=== PATIENT | female | born 1970 | race Caucasian/White ===

== ENCOUNTER 2021-05-25 14:56 | Emergency (ER) | payer OTHER, MEDICAID ==
[~2021-05-25] VITALS: Ht 152.4 cm; Wt 42.2 kg
--- NOTE | 2021-05-25 15:10 | NUR ---
Placed in room 2 . Placed on playground monitor, blood pressure machine and pulse oximeter. To gown for exam. Side rails up.
[2021-05-25 15:13] VITALS: BP_SYST 151
[2021-05-25] MEDS ORDERED: NACL 0.9% 1,000 ML IV ONE (15:15)
[2021-05-25] MEDS ORDERED: KETOROLAC TROMETHAMINE 30 MG VIAL IVP ONE (15:15)
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
--- NOTE | 2021-05-25 15:16 | NUR ---
ER at bedside examining patient.
--- NOTE | 2021-05-25 15:17 | NUR ---
Patient has approximatley 2 cm laceration to Left hindu. Dr. Sainz applied 7 josep using sterile technique. Edges well approximated. Site cleansed with sterile saline. Dressing of gauze applied to site. No bleeding noted. Pt tolerated well.
--- NOTE | 2021-05-25 15:30 | NUR ---
applied 7 josep to worship laceration. Pt tolerated well. no bleeding noted.
--- NOTE | 2021-05-25 15:35 | NUR ---
Bacitracin applied to site. Pt tolerated well.
[2021-05-25] MEDS ORDERED: BACITRACIN 1 GM OINT TP ONE (15:43)
--- NOTE | 2021-05-25 16:00 | NUR ---
Pt resting in rpoyen VSS attached to monitor with side rails up no distress noted at this time.
--- NOTE | 2021-05-25 16:25 | NUR ---
Pt assisted to bedpan. Pt tolerated well.
--- NOTE | 2021-05-25 16:28 | NUR ---
Patient transported to radiology via gurney, accompanied by wagner.
--- NOTE | 2021-05-25 16:50 | NUR ---
Pt back from CT. Reattached to monitors.
--- NOTE | 2021-05-25 17:00 | NUR ---
Pt resting in [place]oseph VSS attached to monitor with side rails up no distress noted at this time.
--- NOTE | 2021-05-25 17:39 | NUR ---
Pt assisted to bedpan. Pt tolerated well. No distress noted at this time.
--- NOTE | 2021-05-25 17:41 | NUR ---
Pt requesting food. Pt offered food. Pt rejected offered food. Pt states she wants an apple. Pt educated that we do not carry apples. Brought pt a fruit cup and pt rejected it. Pt insists on eating an apple. Fruit cup left at bedside.
[2021-05-25] MEDS ORDERED: NAPR-1172 PO (17:52)
[2021-05-25 18:10] VITALS: BP_SYST 135
--- NOTE | 2021-05-25 18:10 | NUR ---
Patient given written and verbal discharge instructions and verbalizes understanding. ER MD discussed with patient the results and treatment provided. Patient in stable condition. ID arm band removed. Rx of NAPROXEN given. Patient educated on pain management and to follow up with PMD. Pain Scale 0/10. Opportunity for questions provided and answered. Medication side effect fact sheet provided.
== END 2021-05-25 18:10 | disposition home or self-care (01) ==
LOC: SED 15:46
DX: S01.01XA Laceration without foreign body of scalp, initial encounter (principal); S13.4XXA Sprain of ligaments of cervical spine, initial encounter; S09.90XA Unspecified injury of head, initial encounter; Z79.899 Other long term (current) drug therapy; V43.52XA Car driver injured in collision with other type car in traffic accident, initial encounter; Y93.89 Activity, other specified; Y92.89 Other specified places as the place of occurrence of the external cause; Y99.8 Other external cause status
CPT/HCPCS: 12001; 70450; 72125; 72131; 73060; 73552; 73590; 76376; 82962; 96361; 96374; 99285; J1885; J7030

== ENCOUNTER 2021-06-04 15:23 | Emergency (ER) | payer MEDICAID, OTHER ==
[~2021-06-04] VITALS: Ht 152.4 cm; Wt 43.1 kg
[~2021-06-04 15:23] MED LIST: NAPR-1172 PO
[2021-06-04 15:41] VITALS: BP_SYST 103
--- NOTE | 2021-06-04 18:00 | NUR ---
PT TO [facility] FOR EVALUATION.
--- NOTE | 2021-06-04 18:05 | NUR ---
PT AAO AND AMBULATORY REPORTING THAT SHE NEEDED HER PATRICK REMOVED FROM HER HEAD. PT REPORTS THAT SHE HAS HAD THEM IN PLACE X 13 DAYS. LACERATION IS APPROXMATED WELL AND THERE IS NO DRAINAGE OR REDNESS.
--- NOTE | 2021-06-04 18:10 | NUR ---
DR. IBANEZ TO BEDSIDE TO ASSESS.
--- NOTE | 2021-06-04 18:20 | NUR ---
SUTURES REMOVED (7) BY CHARGE NURSE, PT TOLERATED WELL. WOUND IS APPROXIMATED WELL WITHOUT DRAINAGE OR REDNESS.
--- NOTE | 2021-06-04 18:50 | NUR ---
DR. IBANEZ TO BEDSIDE TO FINISH STAPLE REMOVAL.
--- NOTE | 2021-06-04 19:10 | NUR ---
REPORT GIVEN TO STEVO PEÑA WHO WILL ASSUME CARE.
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
== END 2021-06-04 20:00 | disposition left against medical advice (07) ==
LOC: SED 15:23
DX: Z48.02 Encounter for removal of sutures (principal); Z53.21 Procedure and treatment not carried out due to patient leaving prior to being seen by health care provider